=== PATIENT | male | born 1970 | race Caucasian/White ===

== ENCOUNTER 2019-03-01 08:25 | Day surgery (SDC) | payer OTHER ==
[~2019-03-01 08:25] MED LIST: Cefuroxime 10 MG/ML SYRINGE EYERT SCH; Lidocaine 1% PF 2 ML SDV INJECT SCH; Pilocarpine 4% Ophth Soln 15 ML Bot EYERT SCH
[2019-03-01] MEDS: Polymyxin B/Trimethoprim 10 ML Bottle EYERT SCH ×3 (09:17→12:34)
[2019-03-01] MEDS: Brimonidine 0.2% Ophth Soln 5 ML Bottle EYERT SCH ×3 (09:22→12:34)
[2019-03-01] MEDS: Phenylephrine 2.5% Ophth Soln 2 ML Bot EYERT SCH ×5 (09:27→12:02)
[2019-03-01] MEDS: Tropicamide 1% Ophth Soln 15 ML Bottle EYERT SCH ×4 (09:32→11:25)
--- NOTE | 2019-03-01 10:12 | PCM.PREANE ---
Preanesthetic Assessment - Anesthesia/Transfusion/Family Hx Anesthesia History: No Prior Anesthesia Family History of Anesthesia Reaction: No - Review of Systems General: No Symptoms Pulmonary: Cough (Dry, Smoker 1.5ppday. Wheezing noted with ascultation. ) Cardiovascular: Other (Hypertension, Active working >4 MET capacity. ) Gastrointestinal: Other (GERD controlled with medication. ) Neurological: Other (Claustrophobia) Other: Reports: None (ETOH abuse, went through treatement. 6 months since his last drink. ), Diabetes (Borderline, monitoring closely. ), Anxiety - Physical Assessment NPO Status Date: 02/28/19 NPO Status Time: 23:45 Vital Signs: Last Vital Signs Temp 37.1 C 03/01/19 09:05 Pulse 79 03/01/19 09:05 Resp 16 03/01/19 09:05 BP 143/74 H 03/01/19 09:05 Pulse Ox 95 03/01/19 09:05 Height: 1.93 m Weight: 129.274 kg ASA Class: 3 Mental Status: Alert & Oriented x3 Airway Class: Mallampati = 2 Dentition: Reports: Caries Thyro-Mental Finger Breadths: 3 Mouth Opening Finger Breadths: 3 ROM/Head Extension: Full Lungs: Normal Respiratory Effort, Decreased Breath Sounds, Wheezing Cardiovascular: Regular Rate, Regular Rhythm - Allergies Allergies/Adverse Reactions: Allergies Allergy/AdvReac Type Severity Reaction Status Date / Time No Known Allergies Allergy Verified 02/28/19 10:18 - Anesthesia Plan Pre-Op Medication Ordered: Other (Albuterol Neb Treatment) - Acknowledgements Anesthesia Type Planned: MAC Pt an Appropriate Candidate for the Planned Anesthesia: Yes Alternatives and Risks of Anesthesia Discussed w Pt/Guardian: Yes Pt/Guardian Understands and Agrees with Anesthesia Plan: Yes PreAnesthesia Questionnaire - HOME MEDS Home Medications: Home Meds Albuterol [Ventolin HFA] 2 - 3 puff INH ASDIRECTED PRN 02/28/19 [History] Ibuprofen 800 mg PO TID 02/28/19 [History] Losartan [Cozaar] 100 mg PO DAILY 02/28/19 [History] Omeprazole 20 mg PO DAILY 02/28/19 [History] Rosuvastatin Calcium [Crestor] 20 mg PO DAILY 02/28/19 [History] Verapamil [Verapamil SR (24 Hr)] 120 mg PO DAILY 02/28/19 [History] - CURRENT (IN HOUSE) MEDS Current Meds: Current Medications Brimonidine Tartrate (Alphagan 0.2% Ophth Soln) 0 ml EYERT ASDIRECTED SVETA Last Admin: 03/01/19 09:22 Dose: 1 drop Cefuroxime Sodium (Zinacef) 0 mg EYERT ASDIRECTED SVETA Stop: 03/01/19 18:00 Lidocaine HCl (Xylocaine-Mpf 1%) 0 ml INJECT ASDIRECTED SVETA Stop: 03/01/19 18:00 Phenylephrine HCl (Pop-Synephrine 2.5% Ophth Soln) 0 ml EYERT ASDIRECTED SVETA Stop: 03/01/19 18:00 Last Admin: 03/01/19 09:27 Dose: 1 drop Pilocarpine HCl (Pilocar 4% Ophth Soln) 0 ml EYERT ASDIRECTED SVETA Stop: 03/01/19 18:00 Polymyxin/Trimethoprim Sulfate (Polytrim Ophth Soln) 0 ml EYERT ASDIRECTED SVETA Stop: 03/01/19 18:00 Last Admin: 03/01/19 09:17 Dose: 1 drop Tetracaine HCl (Tetracaine 0.5% Steri-Unit Desirae) 0 ml EYERT ASDIRECTED SVETA Stop: 03/01/19 18:00 Tropicamide (Mydriacyl 1% Ophth Soln) 0 ml EYERT ASDIRECTED SVETA Stop: 03/01/19 18:00 Last Admin: 03/01/19 09:32 Dose: 1 drop
[2019-03-01] MEDS ORDERED: Albuterol 0.083% 2.5 MG/3 ML Neb Soln NEB ONE (10:14)
[2019-03-01] MEDS ORDERED: Lidocaine 1%/Sod Bicarbonate in NS 8.4% 1 ML Syringe IDERM PRN (10:14)
[2019-03-01] MEDS ORDERED: Sodium Chloride 0.9% 10 ML Syringe FLUSH PRN (10:14)
[2019-03-01] MEDS ORDERED: Lactated Ringers 1,000 ML IV SCH (10:15)
[2019-03-01] MEDS ORDERED: fentaNYL 100 MCG/2 ML SDV ONE (11:45)
[2019-03-01] MEDS ORDERED: Midazolam 1 MG/ML 2 ML SDV ONE ×3 (11:45→12:14)
[2019-03-01] MEDS ORDERED: Propofol 200 MG/20 ML SDV ONE (11:45)
[2019-03-01] MEDS ORDERED: Lidocaine 1% 4 ML ONE (11:52)
[2019-03-01] MEDS: Tetracaine HCl/PF 0.5% 4 ML Bottle EYERT SCH ×2 (11:52→12:10)
--- NOTE | 2019-03-01 12:46 | PCM48HPAN ---
Post Anesthesia Note - EVALUATION WITHIN 48HRS OF ANESTHETIC Vital Signs in Normal Range: Yes Patient Participated in Evaluation: Yes Respiratory Function Stable: Yes Airway Patent: Yes Cardiovascular Function Stable: Yes Hydration Status Stable: Yes Pain Control Satisfactory: Yes Nausea and Vomiting Control Satisfactory: Yes Mental Status Recovered: Yes Vital Signs: Last Vital Signs 1240 120/63 82 18 99.2F
== END 2019-03-01 13:20 | disposition home or self-care (01) ==
LOC: JD.SDS 08:25
PROVIDERS: ATTEND Ophthalmology
DX: H26.131 Total traumatic cataract, right eye (principal); H25.89 Other age-related cataract; H25.812 Combined forms of age-related cataract, left eye; H27.8 Other specified disorders of lens; H31.091 Other chorioretinal scars, right eye; H16.223 Keratoconjunctivitis sicca, not specified as Sjogren's, bilateral; H16.103 Unspecified superficial keratitis, bilateral; I10 Essential (primary) hypertension; E78.00 Pure hypercholesterolemia, unspecified; F41.9 Anxiety disorder, unspecified; F17.210 Nicotine dependence, cigarettes, uncomplicated; M19.90 Unspecified osteoarthritis, unspecified site; R73.03 Prediabetes; Z83.511 Family history of glaucoma; Z83.518 Family history of other specified eye disorder; Z79.1 Long term (current) use of non-steroidal anti-inflammatories (NSAID); Z79.899 Other long term (current) drug therapy
CPT/HCPCS: 66982; 94640; J0697; J2001; J2250; J3010; J7120; V2632; J2704